=== PATIENT | female | born 1995 | race Caucasian/White ===

== ENCOUNTER 2016-05-19 18:48 | Emergency (ER) | payer OTHER ==
[2016-05-19 19:03] VITALS: BP 138/80
[2016-05-19] MEDS ORDERED: Ibuprofen TAB* 600 MG PO ONE (19:34)
--- NOTE | 2016-05-19 19:40 | UC ---
Lower Extremity/Ankle HPI - HPI Summary HPI Summary: 21 yo female injured right foot playing B-ball Had to immediately stop pain currently 0-1/10 non wt bearing and 7/10 wt bearing - History of Current Complaint Chief Complaint: UCLowerExtremity Stated Complaint: FOOT INJURY Time Seen by Provider: 05/19/16 19:30 Hx Obtained From: Patient Hx Last Menstrual Period: 04/24/16 Onset/Duration: Sudden Onset Severity Initially: Moderate Severity Currently: Mild Pain Intensity: 1 - 7 with wt bearing Pain Scale Used: 0-10 Numeric Aggravating Factor(s): Standing, Ambulation Alleviating Factor(s): Rest Able to Bear Weight: Yes - in cam boot - Allergies/Home Medications Allergies/Adverse Reactions: Allergies Allergy/AdvReac Type Severity Reaction Status Date / Time No Known Allergies Allergy Verified 05/05/15 12:53 PMH/Surg Hx/FS Hx/Imm Hx Previously Healthy: Yes Endocrine History Of: Denies: Diabetes, Thyroid Disease Cardiovascular History Of: Denies: Cardiac Disorders, Hypertension, Pacemaker/ICD Respiratory History Of: Reports: Asthma Denies: COPD GI/ History Of: Denies: Ulcer - Surgical History Surgical History: Yes Surgery Procedure, Year, and Place: TONSILECTOMY, LT KNEE SCOPE 5 YRS AGO Right knee scope 04/13 - Family History Known Family History: Negative: Cardiac Disease, Hypertension, Diabetes - Social History Alcohol Use: None Substance Use Type: None Smoking Status (MU): Never Smoked Tobacco Review of Systems Constitutional: Negative Skin: Negative Eyes: Negative ENT: Negative Respiratory: Negative Cardiovascular: Negative Gastrointestinal: Negative Genitourinary: Negative Motor: Negative Neurovascular: Negative Musculoskeletal: Arthralgia, Myalgia Neurological: Negative Psychological: Negative All Other Systems Reviewed And Are Negative: Yes Physical Exam Triage Information Reviewed: Yes Appearance: Well-Appearing, No Pain Distress, Well-Nourished Vital Signs: Initial Vital Signs Temp 98.8 F 05/19/16 18:51 Pulse 96 05/19/16 18:51 Resp 18 05/19/16 18:51 BP 138/80 05/19/16 18:51 Pulse Ox 99 05/19/16 18:51 Vital Signs Reviewed: Yes Eyes: Positive: Conjunctiva Clear ENT: Positive: Hearing grossly normal. Negative: Nasal congestion, Nasal drainage, Trismus, Muffled/hoarse voice Neck: Positive: Supple, Nontender Respiratory: Positive: Lungs clear, Normal breath sounds, No respiratory distress, No accessory muscle use Cardiovascular: Positive: RRR, No Murmur Musculoskeletal: Positive: ROM Intact, Other: - see image Neurological: Positive: Alert Psychological Exam: Normal Skin Exam: Normal Lower Extremity Course/Dx - Differential Dx/Diagnosis Provider Diagnoses: right foot contusion Discharge - Discharge Plan Condition: Stable Disposition: HOME Prescriptions: Ibuprofen TAB* [Motrin TAB*] 600 mg PO QID PRN #40 tab PRN Reason: Pain Patient Education Materials: Contusion in Adults (ED) Referrals: Lyndsay Lord MD [Primary Care Provider] - Additional Instructions: rest ice elevate motrin wear your boot until able to bear wt comfortably in your normal footwear if not completely better in 2 weeks get rechecked you BP was a little elevated today ...probably due to pain you should probably get it recheck in a couple of weeks It was 138/80 (pre hypertensive range) Images Feet (Multiple View): 1 - tender and swollen here
--- NOTE | 2016-05-19 20:19 | RAD ---
INDICATION: Volleyball injury to the first metatarsal COMPARISON: None. TECHNIQUE: 3 views of the right foot were obtained. FINDINGS: The adequately corticated bones are properly aligned. Joint spaces appear maintained. No fracture, dislocation or focal bony abnormality is seen. IMPRESSION: Normal radiograph of the right foot. If the patient's symptoms persist, follow-up imaging is recommended.
== END 2016-05-19 20:00 | disposition home or self-care (01) ==
LOC: UCEAST 18:48
DX: S90.31XA Contusion of right foot, initial encounter (principal); X58.XXXA Exposure to other specified factors, initial encounter; Y93.67 Activity, basketball; Y92.310 Basketball court as the place of occurrence of the external cause
CPT/HCPCS: 99212; A9270-GY; G0463